=== PATIENT | female | born 1955 | race Caucasian/White ===

== ENCOUNTER 2022-05-04 15:07 | Observation (INO) ==
[2022-05-04 15:42] LABS: ABS Basophils 0.1 10^3/ul (0-0.2); ABS Eosinophils 0.1 10^3/ul (0-0.6); ABS Lymphocytes 0.7 10^3/ul (1.0-4.8); ABS Monocytes 0.4 10^3/ul (0-0.8); Eosinophil % 2.3 %; Hematocrit 39 % (35-47); Hemoglobin 13.7 g/dL (12.0-16.0); Mean Corpuscular HGB Conc 35 g/dL (31-36); Mean Corpuscular Hemoglobin 33 pg (27-31); Mean Corpuscular Volume 94 fL (80-97); Mean Platelet Volume 11.2 fL (7.4-10.4); Nucleated Red Blood Cells % 0.1; Platelet Count 183 10^3/uL (150-450); Red Blood Count 4.17 10^6 /uL (3.70-4.87); Red Cell Distribution Width 12 % (10-15); White Blood Count 5.3 10^3/uL (3.5-10.8)
[2022-05-04 16:13] LABS: High Sens Troponin Baseline 3 pg/mL (<15)
[2022-05-04 16:42] LABS: ALT < 3 U/L (7-52); AST 15 U/L (13-39); Albumin 4.7 g/dL (3.2-5.2); Albumin/Globulin Ratio 2.2 (1-3); Alkaline Phosphatase 49 U/L (35-149); Anion Gap 7 mmol/L (2-11); Blood Urea Nitrogen 21 mg/dL (6-24); CO2 Carbon Dioxide 30 mmol/L (22-32); Calcium 9.9 mg/dL (8.6-10.3); Chloride 104 mmol/L (101-111); Globulin 2.1 g/dL (2-4); Glucose 99 mg/dL (70-100); Potassium 4.6 mmol/L (3.5-5.0); Sodium 141 mmol/L (135-145); Total Protein 6.8 g/dL (6.4-8.9); eGFR CKD-EPI 89.2 (>60)
[2022-05-04 17:10] LABS: High Sensitivity Troponin 1 Hr < 3 pg/mL (<15)
[2022-05-04] MEDS ORDERED: NS 0.9% 1000 ml BAG 1,000 ML IV ONE (17:35)
[2022-05-04] MEDS ORDERED: Iohexol 350 (CONTRAST) 500 ML MDV IV ONE (17:39)
[2022-05-04 18:15] LABS: Magnesium 2.2 mg/dL (1.9-2.7)
[2022-05-04 18:35] LABS: TSH Ultra Thyroid Stim Horm 1.44 mcIU/mL (0.34-5.60)
[2022-05-04 20:24] LABS: Urine Appearance Clear; Urine Color Yellow
[2022-05-04 20:25] LABS: Urine Bilirubin Negative (Negative); Urine Blood Negative (Negative); Urine Glucose Negative (Negative); Urine Nitrite Negative (Negative); Urine Protein Negative (Negative); Urine Urobilinogen 0.2 (Negative) (Negative); Urine pH 6.5 (5.0-9.0)
[2022-05-04 20:59] LABS: Urine Ketones Trace (Negative)
[2022-05-04] MEDS ORDERED: Enoxaparin 40 MG/0.4 ML SYR SUBCUT SCH (23:45)
[2022-05-05] MEDS ORDERED: Carbidopa/Levodopa ER 25/100 TABLET.ER PO SCH ×2 (07:00→17:30)
[2022-05-05] MEDS ORDERED: LEVODOPA PO SCH (07:59)
[2022-05-05] MEDS ORDERED: CARBIDOPA PO SCH ×2 (07:59→21:00)
[2022-05-05] MEDS ORDERED: Polyethylene Glycol 3350 17 GM PACKET PO SCH (09:00)
[2022-05-05] MEDS ORDERED: Vortioxetine 10 mg TAB (NF) PO SCH (09:00)
[2022-05-05] MEDS ORDERED: Aminophylline 25 MG/ML VIAL ONE (10:00)
[2022-05-05] MEDS ORDERED: Regadenoson 0.4 MG/5 ML SYRINGE ONE (10:00)
[2022-05-05] MEDS: CARBIDOPA PO SCH ×2 (11:51→14:58)
[2022-05-05] MEDS: LEVODOPA PO SCH ×2 (11:51→14:58)
[2022-05-05 17:13] VITALS: BP 132/79
[2022-05-05] MEDS ORDERED: LEVODOP PO SCH (21:00)
[2022-05-05] MEDS ORDERED: OPICAPONE 50 MG PO SCH (21:00)
[2022-05-06] MEDS ORDERED: Carbidopa/Levodopa ER 25/100 TABLET.ER PO SCH (07:00)
== END 2022-05-05 17:31 | disposition short-term general hospital (02) ==
LOC: EDERBED → ED 15:07 → EDHOLD 15:07 → SUATTDRO 23:15 → INTOOBSV 23:15 → EDHOLD 23:16 → UNDODEPER 05-05 17:31 → EDHOLD 05-05 17:31
PROVIDERS: ADMIT Internal Medicine; ATTEND Internal Medicine